=== PATIENT | female | born 2000 | race American Indian/Alaskan Native ===

== ENCOUNTER 2023-12-22 11:43 | Emergency (ER) | payer MEDICAID ==
[2023-12-22] MEDS: Methocarbamol 500 MG Tab PO ONE (12:13)
[2023-12-22] MEDS: Ketorolac 30 MG/ML SDV IM ONE (12:13)
[2023-12-22] MEDS: HYDROmorphone 1 MG/ML Syringe IM ONE (13:17)
== END 2023-12-22 14:02 | disposition home or self-care (01) ==
LOC: JP.ED 11:43
DX: M54.50 Low back pain, unspecified (principal); Z79.899 Other long term (current) drug therapy
CPT/HCPCS: 72100; 72220; 96372; 99283; A9270; J1170; J1885